=== PATIENT | male | born 1965 | race Two or more races ===

== ENCOUNTER 2023-04-29 08:49 | Outpatient (CLI) | payer OTHER | END 2023-04-29 08:57 | disposition home or self-care (01) | LOC: LAB 08:49 | PROVIDERS: ATTEND Orthopaedic Surgery Hand Surgery | DX: Z01.810 Encounter for preprocedural cardiovascular examination (principal); E11.9 Type 2 diabetes mellitus without complications; E78.00 Pure hypercholesterolemia, unspecified; E78.3 Hyperchylomicronemia; D65 Disseminated intravascular coagulation [defibrination syndrome]; D66 Hereditary factor VIII deficiency; N39.0 Urinary tract infection, site not specified; I10 Essential (primary) hypertension ==

== ENCOUNTER 2023-05-10 06:50 | Day surgery (SDC) | payer OTHER ==
[~2023-05-10] VITALS: Ht 172.7 cm; Wt 81.6 kg
[~2023-05-10 06:50] MED LIST: ATORVAST PO; METFORMIN HCL1000 M1 PO
== END 2023-05-10 19:25 | disposition home or self-care (01) ==
LOC: CIR.AMB 06:50
PROVIDERS: ATTEND Orthopaedic Surgery Hand Surgery
DX: M72.0 Palmar fascial fibromatosis [Dupuytren] (principal); Z20.822 Contact with and (suspected) exposure to COVID-19; E11.9 Type 2 diabetes mellitus without complications; E78.5 Hyperlipidemia, unspecified